=== PATIENT | female | born 1945 | race Caucasian/White ===

== ENCOUNTER 2020-04-06 09:57 | Outpatient (RCR) | payer MEDICARE, OTHER, SELFPAY | END 2020-04-06 23:59 | LOC: IMMUN 09:57 | PROVIDERS: Referring Provider Family Medicine; Visit Provider Family Medicine | DX: Z23 Encounter for immunization (principal) | CPT/HCPCS: 0011A; 0012A; 91301 ==

== ENCOUNTER → 2024-12-04 | Outpatient (CLI) | payer MEDICARE, OTHER, SELFPAY ==
--- NOTE | 2024-12-04 12:26 | US_ITS ---
PROCEDURE: KIDNEY AND BLADDER 12/04/2024 REASON FOR EXAM: UTI TECHNIQUE: Procedure Code: USKI Modality: US Procedure: KIDNEY AND BLADDER COMPARISON: None FINDINGS: Kidneys: Normal renal sizes, parenchymal thicknesses, and echotextures. [place]: No evidence of hydronephrosis. Cysts or Masses: No cysts or large solid renal masses. Other: None RIGHT Kidney Size: 9.8 cm x 4.2 cm x 5.2 cm Cortical Thickness (if discernible): 10 (>6mm is normal) LEFT Kidney Size: 9.9 cm x 5 cm x 5.5 cm Cortical Thickness (if discernible): 10 (>6mm is normal) Bladder: Unremarkable. US/Kidney and Bladder IMPRESSION: NORMAL RENAL ULTRASOUND. Reading Location: [place] [id number]
== END | disposition home or self-care (01) ==
LOC: US 12:24
PROVIDERS: Referring Provider Urology; Visit Provider Urology
DX: N39.0 Urinary tract infection, site not specified (principal)
CPT/HCPCS: 76770